=== PATIENT | female | born 1995 | race Caucasian/White ===

== ENCOUNTER 2016-12-17 17:39 | Emergency (ER) | payer BC ==
[~2016-12-17] VITALS: Ht 165.1 cm; Wt 56.7 kg
[~2016-12-17 17:39] MED LIST: LOW-OGESTREL1 TABLET PO; MACROBID100 MG PO; TYLENOL WITH C1 EACH PO
[2016-12-17] MEDS ORDERED: DEXTROAMP-AMPHE20 MG PO (17:51)
[2016-12-17] MEDS ORDERED: ESCITALOPRAM OX10 MG PO (17:51)
[2016-12-17] MEDS ORDERED: CLONAZEPAM0.5 MG PO (17:52)
[2016-12-17] MEDS ORDERED: DULOXETINE HCL20 MG PO (17:52)
[2016-12-17 18:50] LABS: HEMATOCRIT 38.4 % (36.0-46.0); MCH 30.8 PG (29.0-34.0); MCHC 33.9 G/DL (30.0-36.0); MEAN PLAT.VOLUME 9.5 uM^3 (9.5-12.4); PLATELET COUNT 351 K/uL (156-360); RBC DIS.WIDTH-CV 13.4 % (11.8-14.6); RBC DIS.WIDTH-SD 45.2 % (39-53); RED BLOOD COUNT 4.22 M/uL (3.80-5.20); WHITE BLOOD COUNT 6.8 K/uL (4.1-10.2)
[2016-12-17 19:00] LABS: CHLORIDE 104 mEq/L (99-109); POTASSIUM 3.5 mEq/L (3.7-5.4); SODIUM 139 mEq/L (136-147)
[2016-12-17 19:02] LABS: GLUCOSE 100 mg/dL (70-99)
[2016-12-17 19:03] LABS: ANION GAP 13 MEQ/L (2-14)
[2016-12-17 19:05] LABS: SERUM ETHYL ALCOHOL < 10 mg/dL
[2016-12-17 19:06] LABS: GFR ESTIMATE (CALCULATED) > 59 mL/min/
[2016-12-17 19:07] LABS: UREA NITROGEN (BUN) 6 mg/dL (9-23)
[2016-12-17] MEDS ORDERED: ATARAX10 MG PO (19:14)
[2016-12-17 19:27] VITALS: BP 129/87
== END 2016-12-17 19:29 | disposition home or self-care (01) ==
LOC: EME 17:39
PROVIDERS: Emergency Medicine
DX: F41.9 Anxiety disorder, unspecified (principal); Z87.891 Personal history of nicotine dependence
CPT/HCPCS: 71020; 80048; 85027; 90839; 93005; 99281; 99284; G0480; J7030

== ENCOUNTER 2017-03-11 19:10 | Emergency (ER) | payer BC ==
[~2017-03-11] VITALS: Ht 165.1 cm; Wt 57.8 kg
[~2017-03-11 19:10] MED LIST changes: +ATARAX10 MG PO; +CLONAZEPAM0.5 MG PO; +DEXTROAMP-AMPHE20 MG PO; +DULOXETINE HCL20 MG PO; +ESCITALOPRAM OX10 MG PO
[2017-03-11 19:45] LABS: HEMATOCRIT 39.7 % (36.0-46.0); MCH 28.9 PG (29.0-34.0); MCHC 31.5 G/DL (30.0-36.0); MCV 91.7 FL (83-99); MEAN PLAT.VOLUME 9.7 uM^3 (9.5-12.4); PLATELET COUNT 282 K/uL (156-360); RBC DIS.WIDTH-CV 13.1 % (11.8-14.6); RBC DIS.WIDTH-SD 44.3 % (39-53); RED BLOOD COUNT 4.33 M/uL (3.80-5.20)
[2017-03-11 19:51] LABS: ADD MIUA? YES; BILIRUBIN NEGATIVE; BLOOD NEGATIVE; COLOR YELLOW ((YELLOW)); GLUCOSE (STRIP) NEGATIVE; KETONES NEGATIVE; LEUKOCYTES NEGATIVE; NITRITE NEGATIVE; PROTEIN (STRIP) 100; SPECIFIC GRAVITY 1.028 (1.000-1.030); UROBILINOGEN 0.2 MG/DL (0.2-1.0)
[2017-03-11] MEDS ORDERED: PROZAC20 MG PO (20:06)
[2017-03-11 20:07] LABS: BACTERIA RARE /HPF; EPITHELIAL CELLS 2+ /HPF; MUCUS 1+ /LPF; RED BLOOD CELLS 0-5 /HPF (0-5); UCUL ADDED? NO; WHITE BLOOD CELLS 0-5 /HPF (0-5)
[2017-03-11] MEDS ORDERED: KLONOPIN1 MG PO (20:07)
[2017-03-11] MEDS ORDERED: SEROQUEL100 MG PO (20:07)
[2017-03-11] MEDS ORDERED: DEXTROAMP-AMPHE30 MG PO (20:08)
[2017-03-11] MEDS ORDERED: CRYSELLE1 EACH PO (20:09)
[2017-03-11 20:19] LABS: CHLORIDE 110 mEq/L (99-109); POTASSIUM 4.4 mEq/L (3.7-5.4); SODIUM 139 mEq/L (136-147)
[2017-03-11 20:22] LABS: GLUCOSE 85 mg/dL (70-99)
[2017-03-11 20:23] LABS: ANION GAP 10 MEQ/L (2-14)
[2017-03-11 20:24] LABS: QUANTITATIVE HCG < 4.0 MIU/ML; TOTAL BILIRUBIN 0.6 mg/dL (0.0-1.0)
[2017-03-11 20:25] LABS: ALKALINE PHOSPHATASE 94 IU/L (3-129); GFR ESTIMATE (CALCULATED) > 59 mL/min/
[2017-03-11 20:26] LABS: UREA NITROGEN (BUN) 17 mg/dL (9-23)
[2017-03-11] MEDS ORDERED: BENTYL10 MG PO (21:02)
[2017-03-11 21:53] VITALS: BP 119/75
== END 2017-03-11 21:53 | disposition home or self-care (01) ==
LOC: EME 19:10
DX: R10.10 Upper abdominal pain, unspecified (principal); Z87.891 Personal history of nicotine dependence
CPT/HCPCS: 80053; 81003; 84702; 85027; 99281; 99284

== ENCOUNTER 2017-03-19 17:36 | Inpatient (IN) | payer BC ==
[~2017-03-19] VITALS: Ht 165.1 cm; Wt 62.0 kg
[~2017-03-19 17:36] MED LIST changes: +BENTYL10 MG PO; +CRYSELLE1 EACH PO; +DEXTROAMP-AMPHE30 MG PO; +KLONOPIN1 MG PO; +PROZAC20 MG PO; +SEROQUEL100 MG PO
[2017-03-19 18:28] LABS: HEMATOCRIT 39.4 % (36.0-46.0); MCH 28.8 PG (29.0-34.0); MCHC 32.2 G/DL (30.0-36.0); MCV 89.3 FL (83-99); MEAN PLAT.VOLUME 9.8 uM^3 (9.5-12.4); PLATELET COUNT 319 K/uL (156-360); RBC DIS.WIDTH-CV 13.3 % (11.8-14.6); RBC DIS.WIDTH-SD 43.6 % (39-53); RED BLOOD COUNT 4.41 M/uL (3.80-5.20); WHITE BLOOD COUNT 5.9 K/uL (4.1-10.2)
[2017-03-19 18:36] LABS: CHLORIDE 103 mEq/L (99-109); POTASSIUM 4.4 mEq/L (3.7-5.4); SODIUM 134 mEq/L (136-147)
[2017-03-19 18:38] LABS: GLUCOSE 106 mg/dL (70-99)
[2017-03-19 18:40] LABS: ANION GAP 12 MEQ/L (2-14)
[2017-03-19 18:42] LABS: GFR ESTIMATE (CALCULATED) > 59 mL/min/
[2017-03-19 18:43] LABS: UREA NITROGEN (BUN) 24 mg/dL (9-23)
[2017-03-19 18:49] LABS: TROP-I INTERPRETATION NEGATIVE; TROPONIN-I 0.02 ng/mL (0.0-0.30)
[2017-03-19 18:51] LABS: QUANTITATIVE HCG < 4.0 MIU/ML
[2017-03-19 19:00] LABS: BASE EXCESS -4.9 mEq/L (-3 to +3); BICARBONATE 17.4 mEq/L (22-26); COMMENTS - BLOOD GASES C+A+; DEVICE ROOM AIR; METHEMOGLOBIN 0.7 % (0-1.5); PCO2 25 mm Hg (35-45); PO2 80 mm Hg (80-100); SITE RB; TOTAL RESP RATE 28 resp/min; pH 7.45 (7.35-7.45)
[2017-03-19] MEDS ORDERED: LEVAQUIN750 MG PO (20:14)
[2017-03-19] MEDS ORDERED: BENTYL20 MG PO (21:45)
[2017-03-19] MEDS ORDERED: CLONAZEPAM1 MG PO (21:45)
[2017-03-19] MEDS ORDERED: ADDERALL5 MG PO (21:46)
[2017-03-20 00:08] LABS: ADD MIUA? YES; BILIRUBIN NEGATIVE; BLOOD NEGATIVE; COLOR YELLOW ((YELLOW)); GLUCOSE (STRIP) NEGATIVE; KETONES NEGATIVE; LEUKOCYTES NEGATIVE; NITRITE NEGATIVE; PROTEIN (STRIP) NEGATIVE; SPECIFIC GRAVITY 1.025 (1.000-1.030); UROBILINOGEN 0.2 MG/DL (0.2-1.0)
[2017-03-20 00:12] LABS: BACTERIA NONE SEEN /HPF; EPITHELIAL CELLS 1+ /HPF; HYALINE CASTS 0-5 /LPF; MUCUS TRACE /LPF; RED BLOOD CELLS 0-5 /HPF (0-5); UCUL ADDED? NO; WHITE BLOOD CELLS 0-5 /HPF (0-5)
[2017-03-20 02:40] LABS: ADD MEDTOX COMMENT Y; AMPHETAMINE PRESUMPTIVE POSITIVE (500 ng/mL); BARBITURATES NEGATIVE (200 ng/mL); BENZODIAZEPINES PRESUMPTIVE POSITIVE (150 ng/mL); COCAINE NEGATIVE (150 ng/mL); INTERNAL CONTROLS VALID? YES; METHADONE NEGATIVE (200 ng/mL); METHAMPHETAMINE NEGATIVE (500 ng/mL); OPIATES (MORPHINE) NEGATIVE (100 ng/mL); OXYCODONE PRESUMPTIVE POSITIVE (100 ng/mL); PHENCYCLIDINE NEGATIVE (25 ng/mL); PROPOXYPHENE NEGATIVE (300 ng/mL); THC CANNABINOIDS NEGATIVE (50 ng/mL); TRICYCLIC ANTIDEPRESSANTS NEGATIVE (300 ng/mL)
[2017-03-20 02:48] LABS: TROP-I INTERPRETATION NEGATIVE; TROPONIN-I 0.02 ng/mL (0.0-0.30)
[2017-03-20 03:08] LABS: BENZODIAZEPINES QUANT VALUE 0 NG/ML; BENZODIAZEPINES, URINE SCREEN Negative (200 ng/mL)
[2017-03-20 03:10] VITALS: BP 117/74
[2017-03-20 04:18] LABS: TOTAL BILIRUBIN 1.5 mg/dL (0.0-1.0)
[2017-03-20 04:19] LABS: ALKALINE PHOSPHATASE 137 IU/L (3-129)
[2017-03-20 04:22] LABS: DIRECT BILIRUBIN 1.1 mg/dL (0.0-0.3)
[2017-03-20 08:50] LABS: MCH 28.3 PG (29.0-34.0); MCHC 32.3 G/DL (30.0-36.0); MCV 87.6 FL (83-99); MEAN PLAT.VOLUME 9.8 uM^3 (9.5-12.4); PLATELET COUNT 286 K/uL (156-360); RBC DIS.WIDTH-CV 13.4 % (11.8-14.6); RED BLOOD COUNT 4.45 M/uL (3.80-5.20); WHITE BLOOD COUNT 4.7 K/uL (4.1-10.2)
[2017-03-20 09:12] LABS: ANION GAP 12 MEQ/L (2-14); CHLORIDE 104 MEQ/L (99-109); GFR ESTIMATE (CALCULATED) > 59 mL/min/; GLUCOSE 88 mg/dL (70-99); SAMPLE HEMOLYSIS CHECK 0; SAMPLE ICTERIC CHECK 0; SAMPLE LIPEMIA CHECK 0; SODIUM 139 MEQ/L (136-147); UREA NITROGEN (BUN) 21 mg/dL (9-23)
[2017-03-20 09:13] LABS: POTASSIUM 3.4 MEQ/L (3.7-5.4)
[2017-03-20 09:15] VITALS: BP 98/53
[2017-03-20 09:26] LABS: TROP-I INTERPRETATION NEGATIVE; TROPONIN-I 0.03 ng/mL (0.0-0.30)
[2017-03-20 12:49] LABS: HBSG INDEX 0.17; HPCA INDEX 0.07
[2017-03-20 12:50] LABS: ANTI-HEPATITIS A VIRUS (IGM) Nonreactive; ANTI-HEPATITIS B CORE (IGM) Nonreactive; HAV INDEX 0.14; HBC IgM INDEX 0.06
[2017-03-20 13:02] VITALS: BP 98/55
[2017-03-20 18:11] VITALS: BP 95/53
[2017-03-20 20:03] VITALS: BP 108/73
[2017-03-20 23:08] VITALS: BP 99/60
[2017-03-21 03:51] VITALS: BP 99/55
[2017-03-21 05:44] LABS: EOSINOPHIL (%) 4.1 % (0-5); EOSINOPHIL COUNT 0.2 K/uL (0-0.3); HEMATOCRIT 36.3 % (36.0-46.0); IMMATURE GRANULOCYTE (%) 0.3 % (0.0-0.7); INSTRUMENT ABS NEUTROPHIL CT 2.1 K/uL; LYMPHOCYTE COUNT 1.1 K/uL (1.0-2.8); MCH 28.5 PG (29.0-34.0); MCHC 32.2 G/DL (30.0-36.0); MCV 88.3 FL (83-99); MEAN PLAT.VOLUME 10.2 uM^3 (9.5-12.4); MONOCYTE (%) 12.1 % (3-12); MONOCYTE COUNT 0.5 K/uL (0-0.8); NEUTROPHIL COUNT 2.1 K/uL (1.8-6.4); PLATELET COUNT 273 K/uL (156-360); RBC DIS.WIDTH-CV 13.4 % (11.8-14.6); RBC DIS.WIDTH-SD 43.5 % (39-53); RED BLOOD COUNT 4.11 M/uL (3.80-5.20); WHITE BLOOD COUNT 3.9 K/uL (4.1-10.2)
[2017-03-21 06:16] LABS: ALKALINE PHOSPHATASE 99 IU/L (3-129); ANION GAP 12 MEQ/L (2-14); CHLORIDE 106 MEQ/L (99-109); GFR ESTIMATE (CALCULATED) > 59 mL/min/; GLUCOSE 70 mg/dL (70-99); POTASSIUM 3.7 MEQ/L (3.7-5.4); SAMPLE HEMOLYSIS CHECK 0; SAMPLE ICTERIC CHECK 0; SAMPLE LIPEMIA CHECK 0; SODIUM 142 MEQ/L (136-147); TOTAL BILIRUBIN 1.1 MG/DL (0.0-1.0); UREA NITROGEN (BUN) 17 mg/dL (9-23)
[2017-03-21 08:40] VITALS: BP 113/67
[2017-03-21 12:27] VITALS: BP 98/57
[2017-03-21] MEDS ORDERED: LISINOPRIL2.5 MG PO (14:49)
[2017-03-21] MEDS ORDERED: FUROSEMIDE20 MG PO (14:49)
[2017-03-21] MEDS ORDERED: CARVEDILOL3.125 MG PO (14:49)
[2017-03-21 15:34] VITALS: BP 93/60
[2017-03-21] MEDS ORDERED: LASIX20 MG PO (15:43)
== END 2017-03-21 17:05 | disposition home health service (06) | DRG 292 ==
LOC: EME 17:36 → 4EAST 03-20 01:31 → EDOF 03-20 01:31 → ENRESERV 03-20 01:34 → 4EAST 03-20 03:03
PROVIDERS: Emergency Medicine; Hospitalist
DX: I50.21 Acute systolic (congestive) heart failure (principal); E87.2 Acidosis; E87.6 Hypokalemia; K72.90 Hepatic failure, unspecified without coma; K76.1 Chronic passive congestion of liver; I27.20 Pulmonary hypertension, unspecified; I07.1 Rheumatic tricuspid insufficiency; I42.9 Cardiomyopathy, unspecified; I45.10 Unspecified right bundle-branch block; R18.8 Other ascites; R06.03 Acute respiratory distress; J30.2 Other seasonal allergic rhinitis; R10.9 Unspecified abdominal pain; F43.10 Post-traumatic stress disorder, unspecified; F41.9 Anxiety disorder, unspecified; Z82.49 Family history of ischemic heart disease and other diseases of the circulatory system; Z87.74 Personal history of (corrected) congenital malformations of heart and circulatory system; Z87.891 Personal history of nicotine dependence; Z91.19 Patient's noncompliance with other medical treatment and regimen
CPT/HCPCS: 36600; 71010; 74177; 76705; 80048; 80053; 80074; 80076; 80306 90; 81003; 82803; 83880; 84443; 84484; 84702; 84999; 85025; 85027; 87040; 93005; 93306; 93970; 99281; 99285; J0456; J0696; J1650; J1940; J2060; J7050